=== PATIENT | female | born 1935 | race Caucasian/White ===

== ENCOUNTER 2018-02-16 23:53 | Observation (INO) ==
[2018-02-16] MEDS ORDERED: Aspirin 81 MG TAB.CHEW PO ONE (23:56)
--- NOTE | 2018-02-17 00:23 | Emergency Department Note ---
Disposition Clinical Impression: Elevated troponin A-fib Qualifiers: Atrial fibrillation type: paroxysmal Qualified Code(s): I48.0 - Paroxysmal atrial fibrillation Chest pain Qualifiers: Chest pain type: unspecified Qualified Code(s): R07.9 - Chest pain, unspecified Disposition: Admitted As Inpatient Referrals: NONE,PCP [Primary Care Provider] - General Adult HPI - General Chief complaint: ED Chest Pain Stated complaint: Chest Pain Time Seen by Provider: 02/16/18 23:56 Source: patient Limitations: no limitations Nursing Notes Reviewed: Yes Vital Signs Reviewed: Yes - History of Present Illness HPI Narrative: Female patient presenting complaints from complaining of feeling like her heart is racing. She started having some chest pain when she laid down to go to sleep tonight. Described as a burning sensation and aching to the left side of her chest. Radiated to her back. She is not asleep whenever it started. States that she felt like her heart was racing on and off all day today. Is on Cardizem however was not aware that she had a history of atrial fibrillation. She is in A. fib with RVR at this time in the 160s. She denies any chest pain or shortness of breath. She states that she does feel like her heart is fluttering. She is resting in bed at this time. She states that she is very tired. States that she lost her earlier in the year however she was his only caregiver so she is very tired at that time. She denies any cough or congestion. She denies any shortness of breath. We will provide the patient with a Cardizem bolus. Likely place the patient on a drip. She states that she believes that she has to week to be at home to care for herself at this time. Pain Scale: 0 - Related Data Home Medications Medication Instructions Recorded Confirmed Aspirin [Lo-Dose Aspirin EC] 81 mg PO DAILY 02/17/18 02/17/18 Ferrous Sulfate [Iron] 325 mg PO BID 02/17/18 02/17/18 Levothyroxine Sodium [Tirosint] 100 mcg PO DAILY 02/17/18 02/17/18 dilTIAZem HCl [Diltiazem 24Hr ER] 120 mg PO DAILY 02/17/18 02/17/18 Allergies Allergy/AdvReac Type Severity Reaction Status Date / Time No Known Allergies Allergy Verified 12/24/16 10:13 All systems ED: reviewed and negative except as stated. Constitutional: Denies: fever, chills Cardiovascular: Reports: chest pain (when she layed down. Resolved at this time ), palpitations. Denies: dyspnea on exertion, syncope Respiratory: Denies: cough, dyspnea Gastrointestinal: Reports: abdominal pain (" soreness" near umbilicus). Denies : nausea, vomiting, diarrhea, hematemesis, melena, hematochezia Genitourinary: Denies: urgency, dysuria Musculoskeletal: Reports: back pain Integumentary: Denies: rash Neurological: Reports: weakness. Denies: headache Past Medical History - Past Medical History Attestation: Yes The following information was validated with the patient. Source: patient Medical history: Reports: atrial fibrillation, hypertension, thyroid disease, other Surgical history: Reports: no surgical history Psychiatric history: Reports: no psych history - Social History Smoking Status: Never smoker Smokeless Tobacco Status: No Alcohol use: Reports: none Drug use: Reports: none Physical Exam - General Limitations: no limitations General appearance: alert, in no apparent distress - Head Head exam: atraumatic, normocephalic, normal inspection - Eye Eye exam: Present: normal appearance, PERRL, EOMI - ENT ENT exam: normal exam, normal oropharynx, mucous membranes moist - Neck Neck exam: Present: normal inspection, full ROM, trachea midline - Chest Chest inspection: Present: normal inspection, symmetric chest wall rise - Respiratory Respiratory exam: Present: normal lung sounds bilaterally. Absent: respiratory distress, accessory muscle use - Cardiovascular Cardiovascular exam: Present: regular rate, normal rhythm, tachycardia, normal heart sounds Course Course Narrative: Patient was given a bolus of Cardizem. This did decrease the patient's blood pressure. She will be given a small fluid bolus. Patient's troponin is elevated. She denies any chest pain at this time. We will get a repeat EKG. - Reevaluation(s) Reevaluation #1: Patient's troponin came back elevated. She did convert to a sinus rhythm after the first dose of Cardizem. This was bradycardic. We will admit patient to the hospital. We did not start patient on a drip at this time. Vital Signs Temperature 97.6 F 02/16/18 23:57 Pulse Rate 173 02/16/18 23:57 Respiratory Rate 16 02/16/18 23:57 Blood Pressure 107/92 02/16/18 23:57 O2 Sat by Pulse Oximetry 93 02/16/18 23:57 Temperature 97.6 F 02/16/18 23:57 Pulse Rate 68 02/17/18 02:51 Respiratory Rate 16 02/17/18 02:51 Blood Pressure 112/70 02/17/18 02:51 O2 Sat by Pulse Oximetry 100 02/17/18 02:51 Oxygen Delivery Oxygen Delivery Nasal Cannula Medical Decision Making - Medical Records Medical records reviewed: Yes I reviewed the patient's medical records. - Lab Data Lab results reviewed: Yes I reviewed the patient's lab results. Result diagrams: 02/17/18 00:36 02/17/18 00:10 Lab Results 02/17/18 02/17/18 02/17/18 Range/Units 00:10 00:10 00:10 WBC (4.3-11.1) K/mcL RBC (3.82-4.97) M/mcL Hgb (11.5-15.4) g/dL Hct (35.3-44.9) % MCV (83.0-100.0) fL MCH (28.0-33.3) pg MCHC (31.6-35.5) g/dL RDW (11.5-14.5) % Plt Count (140-400) K/mcL MPV (9.4-12.4) fL Immature Gran % (0-4) % Seg Neutrophils % % Lymphocytes % % Monocytes % % Eosinophils % % Basophils % % Neutrophils # (1.6-8.9) K/mcL Lymphocytes # (0.6-4.6) K/mcL Monocytes # (0.0-1.3) K/mcL Eosinophils # (0.0-0.6) K/mcL Basophils # (0.0-0.2) K/mcL PT 10.8 (9.4-12.1) Seconds INR 1.0 APTT 37.6 H (26.0-36.0) Seconds Sodium 132 L (136-145) mEq/L Potassium 4.2 (3.5-5.1) mEq/L Chloride 108 H (98-107) mEq/L Carbon Dioxide 23 (23-29) mEq/L BUN 18 (8-23) mg/dL Creatinine 0.98 (0.60-1.20) mg/dL Est GFR ( Amer) > 60 (> 60) Est GFR (Non-Af Amer) 55 L (> 60) BUN/Creatinine Ratio 18 (6-26) Glucose 146 H (70-105) mg/dL Calculated Osmolality 279 L (280-300) Calcium 9.3 (8.6-10.3) mg/dL Total Bilirubin 0.8 (0.3-1.0) mg/dL Direct Bilirubin 0.1 (0.0-0.2) mg/dL Indirect Bilirubin 0.7 (0.0-1.2) mg/dL AST 33 (13-39) Units/L ALT 22 (7-52) Units/L Alkaline Phosphatase 59 (34-104) Units/L Troponin I 0.10 H* (< 0.04) ng/mL B-Natriuretic Peptide 200 H (Less than 100) pg/mL Serum Total Protein 6.6 (6.4-8.9) g/dL Albumin 4.2 (3.5-5.7) g/dL Globulin 2.4 (2.4-3.5) g/dL Albumin/Globulin Ratio 1.8 (1.1-2.2) 02/17/18 Range/Units 00:36 WBC 8.3 (4.3-11.1) K/mcL RBC 4.16 (3.82-4.97) M/mcL Hgb 12.4 (11.5-15.4) g/dL Hct 37.4 (35.3-44.9) % MCV 89.9 (83.0-100.0) fL MCH 29.8 (28.0-33.3) pg MCHC 33.2 (31.6-35.5) g/dL RDW 13.3 (11.5-14.5) % Plt Count 235 (140-400) K/mcL MPV 11.8 (9.4-12.4) fL Immature Gran % 0.4 (0-4) % Seg Neutrophils % 73.3 % Lymphocytes % 15.5 % Monocytes % 7.6 % Eosinophils % 1.9 % Basophils % 1.3 % Neutrophils # 6.1 (1.6-8.9) K/mcL Lymphocytes # 1.3 (0.6-4.6) K/mcL Monocytes # 0.6 (0.0-1.3) K/mcL Eosinophils # 0.2 (0.0-0.6) K/mcL Basophils # 0.1 (0.0-0.2) K/mcL PT (9.4-12.1) Seconds INR APTT (26.0-36.0) Seconds Sodium (136-145) mEq/L Potassium (3.5-5.1) mEq/L Chloride (98-107) mEq/L Carbon Dioxide (23-29) mEq/L BUN (8-23) mg/dL Creatinine (0.60-1.20) mg/dL Est GFR ( Amer) (> 60) Est GFR (Non-Af Amer) (> 60) BUN/Creatinine Ratio (6-26) Glucose (70-105) mg/dL Calculated Osmolality (280-300) Calcium (8.6-10.3) mg/dL Total Bilirubin (0.3-1.0) mg/dL Direct Bilirubin (0.0-0.2) mg/dL Indirect Bilirubin (0.0-1.2) mg/dL AST (13-39) Units/L ALT (7-52) Units/L Alkaline Phosphatase (34-104) Units/L Troponin I (< 0.04) ng/mL B-Natriuretic Peptide (Less than 100) pg/mL Serum Total Protein (6.4-8.9) g/dL Albumin (3.5-5.7) g/dL Globulin (2.4-3.5) g/dL Albumin/Globulin Ratio (1.1-2.2) - Radiology Data Radiology results reviewed: Yes I reviewed the patient's radiology results. Chest X-Ray 02/17/18 23:56 IMPRESSION: No acute process. Cardiomegaly Stable moderate size hiatal hernia Thoracic scoliosis D/ / Philip Cardoso MD / Philip Cardoso MD Interpreting Provider: Philip Cardoso MD - EKG Data EKG #1 EKG attestation: Yes I reviewed and interpreted this EKG. EKG results narrative: A. fib with RVR at a rate of 163. QRS duration is 90. QT is 3-75. QTC is 463. Venous EKG in 12/24/2016 showed a normal sinus rhythm. EKG #2 EKG attestation: Yes I reviewed and interpreted this EKG. EKG results narrative: A. fib at a rate of 88. GA interval is not measured. QRS duration is 87. QT is 369. QTC is 447. EKG #3 EKG attestation: Yes I reviewed and interpreted this EKG. EKG results narrative: Sinus bradycardia at a rate of 57. GA interval is 108. QRS duration is 92. QT is 470. QTC is 46. Does appear to have some occasional ectopic beats. No ST elevation noted. No signs of acute ischemia.
[2018-02-17 00:30] LABS: Basophils # 0.1 K/mcL (0.0-0.2); Basophils % 1.3 %; Eosinophils # 0.2 K/mcL (0.0-0.6); Eosinophils % 1.9 %; Hematocrit 37.4 % (35.3-44.9); Hemoglobin 12.4 g/dL (11.5-15.4); Immature Granulocytes % 0.4 % (0-4); Lymphocytes # 1.3 K/mcL (0.6-4.6); Lymphocytes % 15.5 %; Mean Corpuscular HGB Conc 33.2 g/dL (31.6-35.5); Mean Corpuscular Hemoglobin 29.8 pg (28.0-33.3); Mean Corpuscular Volume 89.9 fL (83.0-100.0); Mean Platelet Volume 11.8 fL (9.4-12.4); Monocytes # 0.6 K/mcL (0.0-1.3); Monocytes % 7.6 %; Neutrophils # 6.1 K/mcL (1.6-8.9); Platelet Count 235 K/mcL (140-400); Red Blood Count 4.16 M/mcL (3.82-4.97); Red Cell Distribution Width 13.3 % (11.5-14.5); Segmented Neutrophils % 73.3 %
[2018-02-17 00:31] LABS: Prothrombin Time 10.8 Seconds (9.4-12.1)
--- NOTE | 2018-02-17 00:32 | Emergency Department Note ---
Disposition Clinical Impression: Elevated troponin A-fib Qualifiers: Atrial fibrillation type: paroxysmal Qualified Code(s): I48.0 - Paroxysmal atrial fibrillation Chest pain Qualifiers: Chest pain type: unspecified Qualified Code(s): R07.9 - Chest pain, unspecified Disposition: Admitted As Inpatient Condition: Good General Adult HPI - General Chief complaint: ED Chest Pain Stated complaint: Chest Pain Time Seen by Provider: 02/16/18 23:56 Source: patient Limitations: no limitations Nursing Notes Reviewed: Yes Vital Signs Reviewed: Yes - History of Present Illness Pain Scale: 0 - Related Data Home Medications Medication Instructions Recorded Confirmed Aspirin [Lo-Dose Aspirin EC] 81 mg PO DAILY 02/17/18 02/17/18 Ferrous Sulfate [Iron] 325 mg PO BID 02/17/18 02/17/18 Levothyroxine Sodium [Tirosint] 100 mcg PO DAILY 02/17/18 02/17/18 dilTIAZem HCl [Diltiazem 24Hr ER] 120 mg PO DAILY 02/17/18 02/17/18 Allergies Allergy/AdvReac Type Severity Reaction Status Date / Time No Known Allergies Allergy Verified 12/24/16 10:13 Constitutional: Denies: fever, chills Cardiovascular: Reports: chest pain (when she layed down. Resolved at this time ), palpitations. Denies: dyspnea on exertion, syncope Respiratory: Denies: cough, dyspnea Gastrointestinal: Reports: abdominal pain (" soreness" near umbilicus). Denies : nausea, vomiting, diarrhea, hematemesis, melena, hematochezia Genitourinary: Denies: urgency, dysuria Musculoskeletal: Reports: back pain Integumentary: Denies: rash Neurological: Reports: weakness. Denies: headache Past Medical History - Past Medical History Medical history: Reports: atrial fibrillation, hypertension, thyroid disease, other Surgical history: Reports: no surgical history Psychiatric history: Reports: no psych history - Social History Smoking Status: Never smoker Smokeless Tobacco Status: No Alcohol use: Reports: none Drug use: Reports: none Physical Exam - General Limitations: no limitations General appearance: alert, in no apparent distress Course Vital Signs Temperature 97.6 F 02/16/18 23:57 Pulse Rate 173 02/16/18 23:57 Respiratory Rate 16 02/16/18 23:57 Blood Pressure 107/92 02/16/18 23:57 O2 Sat by Pulse Oximetry 93 02/16/18 23:57 Temperature 98.1 F 02/17/18 03:42 Pulse Rate 85 02/17/18 03:42 Respiratory Rate 16 02/17/18 03:42 Blood Pressure 156/96 02/17/18 03:42 O2 Sat by Pulse Oximetry 100 02/17/18 03:42 Oxygen Delivery Oxygen Delivery Nasal Cannula Medical Decision Making - Medical Records Medical records reviewed: Yes I reviewed the patient's medical records. - Lab Data Lab results reviewed: Yes I reviewed the patient's lab results. Result diagrams: 02/17/18 00:36 02/17/18 00:10 Lab Results 02/17/18 02/17/18 02/17/18 Range/Units 00:10 00:10 00:10 WBC (4.3-11.1) K/mcL RBC (3.82-4.97) M/mcL Hgb (11.5-15.4) g/dL Hct (35.3-44.9) % MCV (83.0-100.0) fL MCH (28.0-33.3) pg MCHC (31.6-35.5) g/dL RDW (11.5-14.5) % Plt Count (140-400) K/mcL MPV (9.4-12.4) fL Immature Gran % (0-4) % Seg Neutrophils % % Lymphocytes % % Monocytes % % Eosinophils % % Basophils % % Neutrophils # (1.6-8.9) K/mcL Lymphocytes # (0.6-4.6) K/mcL Monocytes # (0.0-1.3) K/mcL Eosinophils # (0.0-0.6) K/mcL Basophils # (0.0-0.2) K/mcL PT 10.8 (9.4-12.1) Seconds INR 1.0 APTT 37.6 H (26.0-36.0) Seconds Sodium 132 L (136-145) mEq/L Potassium 4.2 (3.5-5.1) mEq/L Chloride 108 H (98-107) mEq/L Carbon Dioxide 23 (23-29) mEq/L BUN 18 (8-23) mg/dL Creatinine 0.98 (0.60-1.20) mg/dL Est GFR ( Amer) > 60 (> 60) Est GFR (Non-Af Amer) 55 L (> 60) BUN/Creatinine Ratio 18 (6-26) Glucose 146 H (70-105) mg/dL Calculated Osmolality 279 L (280-300) Calcium 9.3 (8.6-10.3) mg/dL Total Bilirubin 0.8 (0.3-1.0) mg/dL Direct Bilirubin 0.1 (0.0-0.2) mg/dL Indirect Bilirubin 0.7 (0.0-1.2) mg/dL AST 33 (13-39) Units/L ALT 22 (7-52) Units/L Alkaline Phosphatase 59 (34-104) Units/L Troponin I 0.10 H* (< 0.04) ng/mL B-Natriuretic Peptide 200 H (Less than 100) pg/mL Serum Total Protein 6.6 (6.4-8.9) g/dL Albumin 4.2 (3.5-5.7) g/dL Globulin 2.4 (2.4-3.5) g/dL Albumin/Globulin Ratio 1.8 (1.1-2.2) 02/17/18 Range/Units 00:36 WBC 8.3 (4.3-11.1) K/mcL RBC 4.16 (3.82-4.97) M/mcL Hgb 12.4 (11.5-15.4) g/dL Hct 37.4 (35.3-44.9) % MCV 89.9 (83.0-100.0) fL MCH 29.8 (28.0-33.3) pg MCHC 33.2 (31.6-35.5) g/dL RDW 13.3 (11.5-14.5) % Plt Count 235 (140-400) K/mcL MPV 11.8 (9.4-12.4) fL Immature Gran % 0.4 (0-4) % Seg Neutrophils % 73.3 % Lymphocytes % 15.5 % Monocytes % 7.6 % Eosinophils % 1.9 % Basophils % 1.3 % Neutrophils # 6.1 (1.6-8.9) K/mcL Lymphocytes # 1.3 (0.6-4.6) K/mcL Monocytes # 0.6 (0.0-1.3) K/mcL Eosinophils # 0.2 (0.0-0.6) K/mcL Basophils # 0.1 (0.0-0.2) K/mcL PT (9.4-12.1) Seconds INR APTT (26.0-36.0) Seconds Sodium (136-145) mEq/L Potassium (3.5-5.1) mEq/L Chloride (98-107) mEq/L Carbon Dioxide (23-29) mEq/L BUN (8-23) mg/dL Creatinine (0.60-1.20) mg/dL Est GFR ( Amer) (> 60) Est GFR (Non-Af Amer) (> 60) BUN/Creatinine Ratio (6-26) Glucose (70-105) mg/dL Calculated Osmolality (280-300) Calcium (8.6-10.3) mg/dL Total Bilirubin (0.3-1.0) mg/dL Direct Bilirubin (0.0-0.2) mg/dL Indirect Bilirubin (0.0-1.2) mg/dL AST (13-39) Units/L ALT (7-52) Units/L Alkaline Phosphatase (34-104) Units/L Troponin I (< 0.04) ng/mL B-Natriuretic Peptide (Less than 100) pg/mL Serum Total Protein (6.4-8.9) g/dL Albumin (3.5-5.7) g/dL Globulin (2.4-3.5) g/dL Albumin/Globulin Ratio (1.1-2.2) - Radiology Data Radiology results reviewed: Yes I reviewed the patient's radiology results. Chest X-Ray 02/17/18 23:56 IMPRESSION: No acute process. Cardiomegaly Stable moderate size hiatal hernia Thoracic scoliosis D/ / Philip Cardoso MD / Philip Cardoso MD Interpreting Provider: Philip Cardoso MD - EKG Data EKG #1 EKG attestation: Yes I reviewed and interpreted this EKG. EKG results narrative: Initial EKG shows atrial fibrillation with RVR with a ventricular rate of 163. Critical Care Time Critical Care Time: Yes Total Critical Care Time: 45 Attestation: Critical care performed: Time is exclusive of separately billable procedures. Time includes: direct patient care, patient reassessment, coordination of patient care, interpretation of data (laboratory data, radiology data, and respiratory data), review of patient's medical records, medical consultation and documentation of patient care. Procedures included in critical care time: Procedures excluded from critical care time: Attestation Statement - Attestation Attestation: I, Denny Marmolejo MD, personally evaluated this patient and discussed their management with the resident physician. I reviewed the resident's note and agree with the documented findings, medical decision making, and plan of care. 82-year-old female presents to the emergency department by EMS with a complaint of palpitations which started about 3 hours prior to arrival when she started to go to bed. She also then developed chest pain which she described as a burning throughout her chest which radiated to the right shoulder. This has totally resolved on arrival here in the emergency department. She still complains of palpitations and can feel her heart racing. She does have a history of similar episodes in the past and is on Cardizem but states that she is unaware if she has a history of atrial fibrillation and no one has ever told her that she had atrial fibrillation. Otherwise no history of coronary artery disease or [place]. She does have a history of hypertension. Also recently her dosage on her Cardizem was increased. On examination patient is a well-developed thin elderly female in no acute distress. She is alert and oriented 3. There is no cyanosis or diaphoresis. Chest is nontender to palpation. Breath sounds are clear and equal bilaterally. Heart is irregularly irregular with a marked tachycardia. Abdomen soft and nontender with normal bowel sounds. No pedal edema. No gross focal neurological deficits. Labs reviewed. Troponin 0.10. EKG shows atrial fibrillation with RVR. Cardiomegaly on chest x-ray. Patient received a Cardizem bolus and a Cardizem drip was ordered but was not initiated because after the bolus patient developed some brief hypotension which resolved with a fluid bolus. Her rate also was controlled and dropped down into the upper 50s and low 60s. The hospitalist, Dr. Gilbert, was consulted and accepted admission of the patient.
[2018-02-17 00:34] LABS: Activated Partial Thrombo Time 37.6 Seconds (26.0-36.0)
[2018-02-17 00:49] LABS: Alanine Aminotransferase 22 Units/L (7-52); Albumin 4.2 g/dL (3.5-5.7); Albumin/Globulin Ratio 1.8 (1.1-2.2); Alkaline Phosphatase 59 Units/L (34-104); Aspartate Amino Transferase 33 Units/L (13-39); BUN/Creatinine Ratio 18 (6-26); Bilirubin,Direct 0.1 mg/dL (0.0-0.2); Bilirubin,Indirect 0.7 mg/dL (0.0-1.2); Bilirubin,Total 0.8 mg/dL (0.3-1.0); Blood Urea Nitrogen 18 mg/dL (8-23); Calcium 9.3 mg/dL (8.6-10.3); Carbon Dioxide 23 mEq/L (23-29); Chloride 108 mEq/L (98-107); Globulin 2.4 g/dL (2.4-3.5); Glucose 146 mg/dL (70-105); Osmolality,Calculated 279 (280-300); Potassium 4.2 mEq/L (3.5-5.1); Sodium 132 mEq/L (136-145); Total Protein 6.6 g/dL (6.4-8.9); eGFR For Non-African Americans 55 (> 60)
[2018-02-17] MEDS ORDERED: 0.9 % Sodium Chloride 1,000 ML IVC ONE (01:03)
[2018-02-17] MEDS ORDERED: 0.9 % Sodium Chloride 250 ML IVC ONE (01:04)
[2018-02-17] MEDS ORDERED: Naloxone 0.4 MG/ML INJ IVP PRN (08:12)
[2018-02-17] MEDS ORDERED: Acetaminophen 325 MG TABLET PO PRN (08:12)
[2018-02-17] MEDS: Diltiazem CD (24hr) 120 MG CAPSULE PO SCH (09:59)
[2018-02-17] MEDS: Aspirin Enteric Coated 81 MG Tablet PO SCH (09:59)
--- NOTE | 2018-02-17 10:21 | Internal Med History&Physical ---
Date of Encounter: 02/17/18 Time of Encounter: 07:50 Internal Medicine - H&P: HPI Chief complaint: Palpitations, chest tightness Admitted From: Emergency Dept Plans for Post Hospital Care: Home History of present illness: Ms. Leal is a 82 year old female with history of paroxysmal atrial fibrillation, who presents with complaints of sudden onset of palpitations last night. Patient reports living in an assisted living facility and has been feeling well until yesterday evening. She went to bed last night when she experienced a sudden onset of palpitations, "flutter in her heart", associated with chest discomfort and central chest pain. She reports a burning chest pain , mild in intensity, intermittently radiating to her jaw. No shortness of breath at rest, no dizziness, she did not get out of bed for failure of presyncope or syncope. No fever, chills, cough or any other symptoms in the preceding days prior to admission. Past Med Surg Social Fam HX - Past Medical History Source: patient, old records reviewed Medical history: atrial fibrillation, GI bleed, hypertension, thyroid disease, other Psychiatric history: no psych history - Past Surgical History Surgical History: no surgical history - Social History Smoking Status: Never smoker Smokeless Tobacco Status: No Alcohol use: none Drug use: none Occupational status: retired Current living situation: Assisted Living Activity Level: Independent ambulation Recent Out of Country Travel Within the Last 8 Weeks: No Exposure or Possible Exposure to Illness During Travel: No - Family History Father Adopted: No Family Member Ethnicity: Non- Living Status: Hx Family Cardiac Disorders: No Hx Family Respiratory Disorders: No Hx Family Cancer: No Hx Family GI Disorders: No Hx Family Endocrine Disorder: No Hx Family Neuromuscular Disorders: No Hx Family Neurologic Disorders: No Hx Family HEENT Disorders: No Hx Family Autoimmune Disorders: No Mother Hx Family Cardiac Disorders: Yes Internal Medicine - H&P: Meds Aspirin [Lo-Dose Aspirin EC] 81 mg PO DAILY 02/17/18 [History] Ferrous Sulfate [Iron] 325 mg PO BID 02/17/18 [History] Levothyroxine Sodium [Tirosint] 100 mcg PO DAILY 02/17/18 [History] dilTIAZem HCl [Diltiazem 24Hr ER] 120 mg PO DAILY 02/17/18 [History] 3 Allergy/AdvReac Type Severity Reaction Status Date / Time No Known Allergies Allergy Verified 12/24/16 10:13 All Systems PM: A 10-system review of systems was performed and is negative for pertinent findings except as documented above in the HPI. - Constitutional Constitutional: no chills, no fever(s), no night sweats - EENT Eyes: no change in vision, no discharge, no pain, no photophobia Ears: no ear discharge, no ear pain, no tinnitus Nose, mouth and throat: no dysphagia, no nasal discharge, no neck pain, no sore throat - Cardiovascular Cardiovascular ROS IM: chest pain, palpitations - Respiratory Respiratory: no cough, no dyspnea, no wheezing, no excessive phlegm production - Gastrointestinal Gastrointestinal: no abdominal pain, no diarrhea, no hematemesis, no hematochezia, no melena, no nausea, no vomiting - Genitourinary Genitourinary: no change in urinary stream, no dysuria, no flank pain, no hematuria - Musculoskeletal Musculoskeletal ROS IM: no numbness, no tingling - Integumentary Integumentary IM: no rash, no unusual bruising - Neurological Neurological ROS: no confusion, no convulsions, no focal weakness, no numbness, no tingling, no tremor(s) - Hematologic/Lymphatic Hematologic/Lymphatic: no easy bruising - Constitutional Vitals: Temp Pulse Resp BP Pulse Ox 97.9 F 78 16 166/96 94 02/17/18 07:40 02/17/18 07:40 02/17/18 07:40 02/17/18 07:40 02/17/18 07:40 General appearance: Present: A&O X 3, no acute distress, answers questions appropriately Exam: . - Respiratory Respiratory exam: Present: CTAB. Absent: accessory muscle use, rales, rhonchi, wheezes - Cardiovascular Cardiovascular exam: Present: RRR, +S1, +S2, systolic murmur, tachycardia. Absent: diastolic murmur, gallop, rubs - GI/Abdominal GI/Abdominal exam: Present: normal bowel sounds, soft, no peritoneal signs. Absent: distended, tenderness - Extremities Exam Extremities exam: Present: full ROM, warm, radial pulses palpable and symmetrical. Absent: calf tenderness, cyanotic, pedal edema - Back Exam Additional comments: kyphosis+ - Neurological Exam Neurological exam: Present: CN II-XII intact, oriented X3, no focal deficits. Absent: pronater drift, facial droop, speech deficit - Skin Skin exam: Present: dry, intact Internal Med - H&P Results - Labs CBC & Chem 7: 02/17/18 00:36 02/17/18 00:10 Labs: Cardiac Enzymes 02/17/18 Range/Units 06:16 Troponin I 6.36 H* (< 0.04) ng/mL - Impressions ITS Impressions Chest X-Ray 02/17/18 23:56 IMPRESSION: No acute process. Cardiomegaly. Stable moderate sized hiatal hernia. Thoracic scoliosis. D/ / 02/17/2018 06:50:06 Philip Cardoso MD / [facility] Interpreting Provider: [place] Cardoso MD - Assessment and plan (1) Atrial fibrillation Current Visit: Yes Status: Acute Assessment and plan: Patient has history of paroxysmal atrial fibrillation, noted to be on calcium channel celeste at home. Presents with new onset of palpitations, noted to be in rapid ventricular response in the emergency room, received a dose of IV Cardizem after which she was noted to have converted to sinus rhythm, sinus bradycardia in 50s. EKGs are not available for review. Patient is asymptomatic now. Telemetry shows sinus rhythm in 90s. Continue telemetry monitoring, resume home dose of Cardizem CD, cycle troponins. Noted to have elevated troponin, 0.12 6.36, could be tachycardia induced. Patient clearly states that she does not wish to have any further invasive testing or intervention. Code status discussed- wants to be Hospice; will place DNR-CCA/ DNI for now; Check 2D Echocardiogram and consult Cardiology; Of note, review of previous records show that patient developed significant GI bleed and blood loss anemia while on Xarelto, after which it was discontinued. We will hold off on anticoagulation at this time, follow up cardiology recommendations. Qualifiers: Atrial fibrillation type: paroxysmal Qualified Code(s): I48.0 - Paroxysmal atrial fibrillation (2) Chest pain Current Visit: Yes Status: Acute Assessment and plan: Could be related to atrial fibrillation with rapid ventricular response. Significant elevation in troponin noted, however patient is currently chest pain -free. Does not desire invasive intervention. Continue telemetry. On aspirin. Follow up cardiology recommendations. Qualifiers: Chest pain type: unspecified Qualified Code(s): R07.9 - Chest pain, unspecified (3) Hypertension Current Visit: Yes Status: Chronic Assessment and plan: Blood pressure noted to be elevated, resume home dose of Cardizem CD. Monitor closely. Qualifiers: Hypertension type: essential hypertension Qualified Code(s): I10 - Essential (primary) hypertension (4) Hypothyroid Current Visit: Yes Status: Chronic Assessment and plan: Resume levothyroxine. Check TSH level. Qualifiers: Hypothyroidism type: unspecified Qualified Code(s): E03.9 - Hypothyroidism , unspecified - Time Spent With Patient Total time spent is greater than 50% in coordination of care (as documented) at patient's floor/unit and/or counseling patient:
--- NOTE | 2018-02-17 13:13 | Cardiology Consult Note ---
Date of Encounter: 02/17/18 Time of Encounter: 13:12 Assessment and Plan (1) Elevated troponin Current Visit: Yes Status: Acute (2) Atrial fibrillation Current Visit: Yes Status: Acute Qualifiers: Atrial fibrillation type: paroxysmal Qualified Code(s): I48.0 - Paroxysmal atrial fibrillation (3) NSTEMI (non-ST elevated myocardial infarction) Current Visit: Yes Status: Acute Discussion w patient/family: The patient is likely suffering from an NSTEMI due to her chest pain and elevated troponin with an unchanged EKG. Our recommendations are heparin drip for 48-72 hours with long acting nitrates for ongoing chest pain. It was explained to the patient that without intervention, she could from an adverse cardiac event. She continued to state she wants hospice care only and is aware that she could from this. As the patient requests no intervention at this time, we also recommend a palliative care consult and to stop trending troponins unless therapy will be initiated. The assessment and plan as outlined above was discussed with the patient and/or family members who expressed understanding and agreement. All questions were answered. Thank you for involving us in the care of your patient. Please call with any questions. History of Present Illness Consult date: 02/17/18 Requesting physician: Ese Sauer Consult reason: Increasing troponin Chief complaint: chest pain History of present illness: Ms. Leal is a 82 year old female who presented last night for 10/10 chest pain with palpitations. She states this started at around 2100 and lasted half an hour. She described it as a burning pain that went away on its own. She is currently CP free and denies SOB, dizziness, headache, and other cardiac symptoms. She denies passing out. She has some abdominal pain but states this is normal for her. No N/V/D/C. She denies any cardiac history and states she has not had any cardiac surgery. She has had pain similar to this before but it did not last this long or hurt as badly as it did last night. She repeatedly states she wants no intervention done, and that she just wants to be placed in hospice care. Past Med Surg Social Fam HX - Past Medical History Medical history: atrial fibrillation, GI bleed, hypertension, thyroid disease, other Psychiatric history: no psych history - Past Surgical History Surgical History: no surgical history - Social History Smoking Status: Never smoker Smokeless Tobacco Status: No Alcohol use: none Drug use: none - Family History Father Adopted: No Family Member Ethnicity: Non- Living Status: Hx Family Cardiac Disorders: No Hx Family Respiratory Disorders: No Hx Family Cancer: No Hx Family GI Disorders: No Hx Family Endocrine Disorder: No Hx Family Neuromuscular Disorders: No Hx Family Neurologic Disorders: No Hx Family HEENT Disorders: No Hx Family Autoimmune Disorders: No Mother Hx Family Cardiac Disorders: Yes Medications and Allergies Aspirin [Lo-Dose Aspirin EC] 81 mg PO DAILY 02/17/18 [History] Ferrous Sulfate [Iron] 325 mg PO BID 02/17/18 [History] Ibuprofen [Motrin Ib] 400 mg PO BID 02/17/18 [History] Levothyroxine [Synthroid] 112 mcg PO DAILY 02/17/18 [History] Multivit-Min/Iron Fum/Folic AC [Sczcy-Houmvlo-Quwsctyz Tablet] 1 each PO DAILY 02/17/18 [History] Sennosides/Docusate Sodium [Senna Plus] 1 each PO BID 02/17/18 [History] dilTIAZem HCl [Diltiazem 24Hr ER] 120 mg PO DAILY 02/17/18 [History] 3 Allergy/AdvReac Type Severity Reaction Status Date / Time No Known Allergies Allergy Verified 12/24/16 10:13 All Systems Review: The remainder of the systems were reviewed and are negative - Constitutional Constitutional: no fatigue, no fever(s), no headache(s), no weakness - EENT Eyes: no blurred vision, no loss of vision - Cardiovascular Cardiovascular: chest pain at rest (resolved), irregular heart rhythm, no chest pain with exertion, no dyspnea at rest, no dyspnea on exertion, no leg edema, no lightheadedness - Respiratory Respiratory: no cough, no dyspnea, no hemoptysis - Gastrointestinal Gastrointestinal: no abdominal pain, no constipation, no diarrhea, no nausea - Genitourinary Genitourinary: no dysuria, no hematuria - Integumentary Integumentary: no erythema, no rash, no unusual bruising - Neurological Neurological: no dizziness, no focal weakness, no numbness Physical Examination Vital Signs, Last 4 Hours Temp Pulse Resp BP Pulse Ox 02/17/18 12:02 98.1 F 84 16 168/105 95 02/17/18 11:30 98.1 F 84 16 168/105 95 General: Conversant, No Apparent Distress, Other HEENT: Atraumatic, Normocephaly, Mucus Membranes Moist Neck: No JVD, Normal carotid pulses Cardiac: Other (irregularly irregular rate, grade 3 systolic murmur) Lungs: Normal Breath Sounds, No Wheeze, Rales, Rhonchi Neuro: Alert and responsive, No focal deficits noted Abdomen: Soft, Other (mild tenderness to RLQ upon palpation) Skin: No rashes noted on visualized skin Musculoskeletal: No Chest Wall Tenderness Extremities: No Cyanosis, No Edema, Normal Pulses Results 02/17/18 00:36 02/17/18 00:10 Lab Results 02/17/18 02/17/18 02/17/18 06:16 09:34 09:34 Magnesium 1.9 Troponin I 6.36 H* TSH 5.013 02/17/18 11:51 Magnesium Troponin I 8.96 H* TSH Consult Discharge Plan - Plan Referrals: NONE,PCP [Primary Care Provider] -
[2018-02-17] MEDS: *HR* Heparin 5,000 UNIT/ML VIAL SQ SCH ×2 (15:19→20:53)
[2018-02-17] MEDS: amLODIPine 5 MG TABLET PO SCH (17:34)
[2018-02-18] MEDS ORDERED: *HR* Metoprolol 5 MG/5 ML VIAL IVP ONE (00:23)
[2018-02-18 04:41] LABS: Basophils # 0.1 K/mcL (0.0-0.2); Eosinophils % 0.5 %; Hematocrit 33.2 % (35.3-44.9); Hemoglobin 10.8 g/dL (11.5-15.4); Immature Granulocytes % 0.3 % (0-4); Lymphocytes # 0.9 K/mcL (0.6-4.6); Lymphocytes % 11.9 %; Mean Corpuscular HGB Conc 32.5 g/dL (31.6-35.5); Mean Corpuscular Hemoglobin 29.5 pg (28.0-33.3); Mean Corpuscular Volume 90.7 fL (83.0-100.0); Mean Platelet Volume 11.7 fL (9.4-12.4); Monocytes # 0.7 K/mcL (0.0-1.3); Monocytes % 9.1 %; Neutrophils # 5.7 K/mcL (1.6-8.9); Platelet Count 188 K/mcL (140-400); Red Blood Count 3.66 M/mcL (3.82-4.97); Red Cell Distribution Width 13.6 % (11.5-14.5); Segmented Neutrophils % 77.2 %
[2018-02-18 05:00] LABS: BUN/Creatinine Ratio 26 (6-26); Blood Urea Nitrogen 16 mg/dL (8-23); Calcium 8.9 mg/dL (8.6-10.3); Carbon Dioxide 25 mEq/L (23-29); Chloride 106 mEq/L (98-107); Glucose 132 mg/dL (70-105); Osmolality,Calculated 287 (280-300); Potassium 3.7 mEq/L (3.5-5.1); Sodium 137 mEq/L (136-145); eGFR For Non-African Americans > 60 (> 60)
[2018-02-18] MEDS: *HR* Heparin 5,000 UNIT/ML VIAL SQ SCH ×2 (05:33→15:02)
[2018-02-18] MEDS: Aspirin Enteric Coated 81 MG Tablet PO SCH (08:28)
[2018-02-18] MEDS: amLODIPine 5 MG TABLET PO SCH (08:28)
[2018-02-18] MEDS: Diltiazem CD (24hr) 120 MG CAPSULE PO SCH (08:28)
--- NOTE | 2018-02-18 09:23 | Internal Med Progress Note ---
Hospitalist Progress Note - Encounter Date of Encounter: 02/18/18 Time of Encounter: 09:21 - Subjective Interval History: Patient seen and examined at bedside. Patient had no acute overnight events. Patient does not have any current chest pain and did not have chest pain overnight. Patient denies any shortness of breath, nausea, vomiting, diarrhea. Patient admits to a mild headache from not sleeping. Discussed starting IV heparin drip on patient for her and STEMI and patient does not want to start IV heparin and just wants to be made comfortable. The patient understands that she could from lack of intervention for her heart attack. The patient states that she is ready for end-of-life discussions and is awaiting to speak to the palliative care today. Patient does not seem depressed whatsoever and states that she is simply tired. - Exam Vitals: Temp Pulse Resp BP Pulse Ox 98.0 F 93 16 140/95 96 02/18/18 06:43 02/18/18 08:34 02/18/18 06:43 02/18/18 06:43 02/18/18 06:43 Exam: Constitutional: No acute distress, Alert Psych: AAO x 3, affect is appropirate HEENT: NCAT, EOMI Cardio: regular rate and rhythm, 2/6 systolic murmur Resp: clear to ascultation bilaterally, no wheezes/rales/ronchi Abd: soft, non tender/non distended, positive bowel sounds, no gaurding/reboud/ ridgitity Extremities: no clubbing/cyanosis/edema appreciated - Assessment and Plan (1) NSTEMI (non-ST elevated myocardial infarction) Current Visit: Yes Status: Acute Assessment and Plan: Pt with NSTEMI troponins continue to rise however pt wants no itervention will stop checking troponins cardio reccommended hep gtt for 48-72 hours however pt declines wants to speak about hospice palliative care consulted no chest pain currently (2) Atrial fibrillation Current Visit: Yes Status: Acute Assessment and Plan: Patient has history of paroxysmal atrial fibrillation, noted to be on calcium channel celeste at home. Presents with new onset of palpitations, noted to be in rapid ventricular response in the emergency room, received a dose of IV Cardizem after which she was noted to have converted to sinus rhythm, sinus bradycardia in 50s. EKGs are not available for review. Now NSR. Continue home meds (3) Hypothyroid Current Visit: Yes Status: Chronic Assessment and Plan: Resume levothyroxine. TSH WNL (4) Hypertension Current Visit: Yes Status: Chronic Assessment and Plan: Blood pressure stable continue home dose of Cardizem CD (5) Chest pain Current Visit: Yes Status: Acute Assessment and Plan: Could be related to atrial fibrillation with rapid ventricular response and with NSTEMI Significant elevation in troponin noted, however patient is currently chest pain -free. Does not desire invasive intervention. Continue telemetry. On aspirin. cardiology recommended hep gtt however pt refuses DVT Prophylaxis: hep sq - Time Spent with Patient Total time spent is greater than 50% in coordination of care (as documented) at patient's floor/unit and/or counseling patient: 25 - 35 minutes Plan of Care Discussed with: patient Internal Medicine: Result - Labs CBC & Chem 7: 02/18/18 04:11 02/18/18 04:11 Labs: Short CBC 02/18/18 Range/Units 04:11 WBC 7.3 (4.3-11.1) K/mcL Hgb 10.8 L D (11.5-15.4) g/dL Hct 33.2 L (35.3-44.9) % Plt Count 188 (140-400) K/mcL Neutrophils # 5.7 (1.6-8.9) K/mcL BMP 02/18/18 04:11 Sodium 137 Potassium 3.7 Chloride 106 Carbon Dioxide 25 BUN 16 Creatinine 0.62 Glucose 132 H Calcium 8.9 Cardiac Enzymes 02/17/18 02/17/18 Range/Units 11:51 14:35 Troponin I 8.96 H* 9.55 H* (< 0.04) ng/mL - ABG Interpretation ABG results: PT/INR, D-dimer PT 10.8 Seconds (9.4-12.1) 02/17/18 00:10 - Impressions Impressions Echocardiogram 02/17/18 08:20 Impressions: LVEF 65-70%. Normal LV chamber size and function. Mild concentric left ventricular hypertrophy. Moderate left ventricular diastolic dysfunction. Normal right ventricular structure and function. Moderately dilated left atrium. Mildly thickened mitral valve leaflets. In some views, there is evidence of prolapse of the posterior mitral valve leaflet. Mild-moderate mitral regurgitation, which was anteriorly directed. Severity of MR could be underestimated. No evidence of pulmonary hypertension identified. Left Ventricular Wall Motion: Rest Echo Findings All wall segments showed normal motion. Findings: Study Quality * Technically adequate exam. ECG Findings * Normal sinus rhythm. Left Ventricle * LVEF 65-70%. * Normal LV chamber size and function. * Mild concentric left ventricular hypertrophy. * Moderate left ventricular diastolic dysfunction. Right Ventricle * Normal right ventricular structure and function. Left Atrium * Moderately dilated left atrium. Right Atrium * Normal right atrial size. Aortic Valve * Trileaflet aortic valve. * Mildly sclerotic aortic valve leaflets. * No aortic stenosis. * No aortic regurgitation. Mitral Valve * Mildly thickened mitral valve leaflets. In some views, there is evidence of prolapse of the posterior mitral valve leaflet. * Mild-moderate mitral regurgitation, which was anteriorly directed. Severity of MR could be underestimated. * No mitral stenosis. Tricuspid Valve * Normal tricuspid valve structure and function. * Trace tricuspid regurgitation. * No evidence of pulmonary hypertension. Pulmonic Valve * Normal pulmonic valve structure and function. * No pulmonic regurgitation. Aorta * Normally sized aortic root. Pericardium * The pericardium appears normal. IVC * Normal IVC dimensions and inspiratory collapse. Pulmonary Artery * Normal visualized portions of the main pulmonary artery. Chest X-Ray 02/17/18 23:56 IMPRESSION: No acute process. Cardiomegaly. Stable moderate sized hiatal hernia. Thoracic scoliosis. D/ / 02/17/2018 06:50:06 Philip Cardoso MD / [facility] Interpreting Provider: Philip Cardoso MD Consult Discharge Plan - Plan Referrals: NONE,PCP [Primary Care Provider] - (Patient says she see's the doctor at the assisted living home) (2) Atrial fibrillation Qualifiers: Atrial fibrillation type: paroxysmal Qualified Code(s): I48.0 - Paroxysmal atrial fibrillation (3) Hypothyroid Qualifiers: Hypothyroidism type: unspecified Qualified Code(s): E03.9 - Hypothyroidism, unspecified (4) Hypertension Qualifiers: Hypertension type: essential hypertension Qualified Code(s): I10 - Essential (primary) hypertension (5) Chest pain Qualifiers: Chest pain type: unspecified Qualified Code(s): R07.9 - Chest pain, unspecified
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
[2018-02-18] MEDS ORDERED: *HR* Heparin 5,000 UNIT/ML VIAL IVP ONE (15:22)
[2018-02-18] MEDS ORDERED: *HR* Heparin 5,000 UNIT/ML VIAL IVP PRN (15:22)
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
[2018-02-18 16:18] LABS: Prothrombin Time 10.9 Seconds (9.4-12.1)
[2018-02-18 16:21] LABS: Hematocrit 34.4 % (35.3-44.9); Hemoglobin 11.5 g/dL (11.5-15.4); Mean Corpuscular HGB Conc 33.4 g/dL (31.6-35.5); Mean Corpuscular Hemoglobin 29.9 pg (28.0-33.3); Mean Corpuscular Volume 89.6 fL (83.0-100.0); Mean Platelet Volume 11.8 fL (9.4-12.4); Platelet Count 203 K/mcL (140-400); Red Blood Count 3.84 M/mcL (3.82-4.97); Red Cell Distribution Width 13.5 % (11.5-14.5)
[2018-02-18 16:34] LABS: Heparin anti-factor XA UFH 0.23 IU/mL (0.30-0.70)
[2018-02-18] MEDS: Heparin 25,000 UNIT/500 ML D5W 25,000 UNIT/500 ML BAG IVC SCH (16:45)
[2018-02-19] MEDS: Diltiazem CD (24hr) 120 MG CAPSULE PO SCH (07:50)
[2018-02-19] MEDS: amLODIPine 5 MG TABLET PO SCH (07:51)
[2018-02-19] MEDS: Aspirin Enteric Coated 81 MG Tablet PO SCH (07:51)
[2018-02-19 08:23] LABS: Hematocrit 36.4 % (35.3-44.9); Hemoglobin 11.8 g/dL (11.5-15.4); Mean Corpuscular HGB Conc 32.4 g/dL (31.6-35.5); Mean Corpuscular Hemoglobin 29.7 pg (28.0-33.3); Mean Corpuscular Volume 91.7 fL (83.0-100.0); Mean Platelet Volume 11.9 fL (9.4-12.4); Platelet Count 205 K/mcL (140-400); Red Blood Count 3.97 M/mcL (3.82-4.97); Red Cell Distribution Width 13.2 % (11.5-14.5)
[2018-02-19 08:35] LABS: BUN/Creatinine Ratio 17 (6-26); Blood Urea Nitrogen 11 mg/dL (8-23); Carbon Dioxide 28 mEq/L (23-29); Chloride 105 mEq/L (98-107); Glucose 99 mg/dL (70-105); Osmolality,Calculated 285 (280-300); Potassium 4.1 mEq/L (3.5-5.1); Sodium 138 mEq/L (136-145); eGFR For Non-African Americans > 60 (> 60)
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
--- NOTE | 2018-02-19 12:04 | Event Note ---
Date of Encounter: 02/19/18 Time of Encounter: 12:02 Patient was seen at the bedside, she is AAO x3, states that she is feeling well. I encouraged pt to continue current treatment. Pt stated that she agreed to treatment because she "can't win". denies any chest pain, shortness of breath , nausea, vomiting, diarrhea. pt to be seen by psychiatry today. GOC are clear, no symptoms to be managed. palliative care signing off. Please re-consult prn.
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
[2018-02-19] MEDS: *HR* Heparin 5,000 UNIT/ML VIAL IVP PRN (19:22)
[2018-02-20 01:46] LABS: Hematocrit 34.4 % (35.3-44.9); Hemoglobin 11.4 g/dL (11.5-15.4)
[2018-02-20] MEDS: amLODIPine 5 MG TABLET PO SCH (07:58)
[2018-02-20] MEDS: Aspirin Enteric Coated 81 MG Tablet PO SCH (07:58)
[2018-02-20] MEDS: Diltiazem CD (24hr) 120 MG CAPSULE PO SCH (07:58)
[2018-02-20] MEDS: *HR* Heparin 5,000 UNIT/ML VIAL IVP PRN (09:34)
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
[2018-02-20] MEDS: *HR* Heparin 5,000 UNIT/ML VIAL SQ SCH ×2 (14:16→20:35)
[2018-02-20] MEDS: Heparin 25,000 UNIT/500 ML D5W 25,000 UNIT/500 ML BAG IVC SCH (19:38)
[2018-02-20 22:45] LABS: Bilirubin,Urine Negative (Negative); Blood,Urine Negative (Negative); Clarity,Urine Clear (Clear); Color,Urine Yellow (Yellow); Glucose,Urine (UA) Normal (Normal); Ketones,Urine Negative (Negative); Leukocyte Esterase,Urine Negative (Negative); Nitrite,Urine Negative (Negative); PH,Urine 6.5 pH Units (5.0-8.0); Protein,Urine Negative (Neg-Trace); Specific Gravity,Urine 1.015 (1.010-1.025); Urobilinogen,Urine Normal (Normal)
[2018-02-20 22:54] LABS: Amphetamine Screen,Urine Negative ng/mL (Cutoff=1000); Barbiturate Screen,Urine Negative ng/mL (Cutoff=200); Benzodiazepines Screen,Urine Negative ng/mL (Cutoff=200); Cannabinoid Screen,Urine Negative ng/mL (Cutoff = 50); Cocaine Screen,Urine Negative ng/mL (Cutoff= 300); Opiate Screen,Urine Negative ng/mL (Cutoff=300); Phencyclidine Screen,Urine Negative ng/mL (Cutoff=25)
[2018-02-21] MEDS: *HR* Heparin 5,000 UNIT/ML VIAL SQ SCH ×3 (06:06→21:01)
[2018-02-21] MEDS: amLODIPine 5 MG TABLET PO SCH (09:00)
[2018-02-21] MEDS: Aspirin Enteric Coated 81 MG Tablet PO SCH (09:00)
[2018-02-21] MEDS: Diltiazem CD (24hr) 120 MG CAPSULE PO SCH (09:01)
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
[2018-02-22] MEDS: *HR* Heparin 5,000 UNIT/ML VIAL SQ SCH ×3 (06:45→21:52)
[2018-02-22] MEDS: amLODIPine 5 MG TABLET PO SCH (08:31)
[2018-02-22] MEDS: Diltiazem CD (24hr) 120 MG CAPSULE PO SCH (08:31)
[2018-02-22] MEDS: Aspirin Enteric Coated 81 MG Tablet PO SCH (08:31)
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
--- NOTE | 2018-02-22 13:24 | Electrocardiograph Report ---
[place] [address] Test Date: 2018-02-18 Pat Name: Kanwal Leal Department: 110 Room: 3A51 Gender: F Genetics Nurse: : 1935 Requested By: Ollie Gilbert Order Number: [id number] Reading MD: Ted Cruz Measurements Intervals [place] Rate: 163 P: [place]: 0 QRS: -12 QRSD: 91 T: 144 QT: 244 QTc: 334 Interpretive Statements ATRIAL FIBRILLATION WITH RAPID VENTRICULAR RESPONSE MODERATE VOLTAGE CRITERIA FOR LVH, CONSIDER NORMAL VARIANT INFERIOR ST CHANGES SUGGEST INFARCT, ACUTE LATERAL RECIPROCAL ST CHANGES CHART REVIEWED, PATIENT SEEN BY CARDIOLOGY Electronically Signed On 02-22-2018 13:22:58 EDT by Ted Cruz
--- NOTE | 2018-02-22 14:11 | Electrocardiograph Report ---
[address] [address] Test Date: 2018-02-16 Pat Name: Kanwal Leal Department: EXAM7 Room: 3A Gender: F Mrb Engineer: : 1935 Requested By: Suzi Grullon Order Number: [id number] Reading MD: Ted Cruz Measurements Intervals [place] Rate: 163 P: [place]: QRS: 50 QRSD: 90 T: 107 QT: 275 QTc: 453 Interpretive Statements Atrial fibrillation with ventricular response Left ventricular hypertrophy ST-T changes due hypertrophy and/or ischemia Electronically Signed On 02-22-2018 14:10:08 EDT by Ted Cruz
--- NOTE | 2018-02-22 14:13 | Electrocardiograph Report ---
[place] [address] Test Date: 2018-02-17 Pat Name: Kanwal Leal Department: EXAM7 Room: 3A Gender: F Teaching Fellow: : 1935 Requested By: Suzi Grullon Order Number: [id number] Reading MD: Ted Cruz Measurements Intervals [place] Rate: 88 P: [place]: QRS: 1 QRSD: 87 T: -12 QT: 369 QTc: 447 Interpretive Statements Atrial fibrillation Left ventricular hypertrophy ST-T changes probably due to hypertrophy Electronically Signed On 02-22-2018 14:11:48 EDT by Ted Cruz
--- NOTE | 2018-02-22 14:14 | Electrocardiograph Report ---
[place] [address] Test Date: 2018-02-17 Pat Name: Kanwal Leal Department: EXAM7 Room: 3A Gender: F Farmworker [employer]: : 1935 Requested By: Thai James Order Number: [id number] Reading MD: Ted Cruz Measurements Intervals [place] Rate: 57 P: -59 [place]: 108 QRS: 0 QRSD: 92 T: 1 QT: 417 QTc: 406 Interpretive Statements Ectopic atrial rhythm Short [place] interval Nonspecific ST-T changes Electronically Signed On 02-22-2018 14:13:04 EDT by Ted Cruz
[2018-02-23] MEDS: *HR* Heparin 5,000 UNIT/ML VIAL SQ SCH ×3 (06:59→21:38)
[2018-02-23] MEDS: amLODIPine 5 MG TABLET PO SCH (08:32)
[2018-02-23] MEDS: Aspirin Enteric Coated 81 MG Tablet PO SCH (08:32)
[2018-02-23] MEDS: Diltiazem CD (24hr) 120 MG CAPSULE PO SCH (08:35)
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
[2018-02-24] MEDS: *HR* Heparin 5,000 UNIT/ML VIAL SQ SCH ×3 (06:18→21:22)
[2018-02-24] MEDS: amLODIPine 5 MG TABLET PO SCH (08:36)
[2018-02-24] MEDS: Diltiazem CD (24hr) 120 MG CAPSULE PO SCH (08:36)
[2018-02-24] MEDS: Aspirin Enteric Coated 81 MG Tablet PO SCH (08:37)
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
[2018-02-25] MEDS: *HR* Heparin 5,000 UNIT/ML VIAL SQ SCH (05:25)
[2018-02-25] MEDS: Aspirin Enteric Coated 81 MG Tablet PO SCH (09:10)
[2018-02-25] MEDS: amLODIPine 5 MG TABLET PO SCH (09:10)
[2018-02-25] MEDS: Diltiazem CD (24hr) 120 MG CAPSULE PO SCH (09:14)
[2018-02-25 09:57] VITALS: BP 158/92
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
--- NOTE | 2018-02-27 11:23 | Electrocardiograph Report ---
[place] [id number] Test Date: 2018-02-24 Pat Name: Kanwal Leal Department: 115 Room: 3A Gender: F Cardroom Supervisor: DAMON : [id number] Requested By: Claudia Valles Order Number: [id number] Reading MD: Joleen Junior Measurements Intervals [place] Rate: 67 P: 2 [place]: 160 QRS: -15 QRSD: 93 T: -11 QT: 379 QTc: 394 Interpretive Statements SINUS RHYTHM POSSIBLE LEFT ATRIAL ENLARGEMENT LEFT VENTRICULAR HYPERTROPHY AND ST-T CHANGE Electronically Signed On 02-27-2018 11:21:49 EDT by Joleen Junior
== END 2018-02-25 17:24 | disposition home or self-care (01) ==
LOC: EMEROOARM 23:53 → 2NNU 23:53 → SUATTDRO 02-17 02:21 → 2NNU 02-17 03:14 → 3ANU 02-22 12:31
PROVIDERS: ADMIT Family Medicine; ATTEND Internal Medicine